=== PATIENT | female | born 1940 | race Caucasian/White ===

== ENCOUNTER 2017-06-18 12:28 | Emergency (ER) | payer OTHER, BC ==
[~2017-06-18] VITALS: Ht 167.6 cm; Wt 115.0 kg
[~2017-06-18 12:28] MED LIST: ASPIR-TRIN325 M1 PO; CARDIZEM CD,CA240 MG PO; CARDIZEM60 MG PO; CLARITIN10 M3 PO; DIOVAN80 MG PO; FLECAINIDE ACET50 MG PO; FLONASE16 G1 BOTH NARES; FLOVENT DISKUS1 DIS2 IH; HYDROCHLOROTHIA25 MG PO; LEVOTHYROXINE75 MCG PO; LEXAPRO10 MG PO; LORAZEPAM0.5 MG PO; LOSARTAN POTASS25 MG PO; PROAIR RESPICL90 MCG IH; RANITIDINE HCL150 M1 PO; SINGULAIR10 MG PO; VITAMIN D-32000 UNI2 PO; ZANTAC150 MG PO; ZYRTEC10 M2 PO
[2017-06-18] MEDS ORDERED: SKELAXIN800 MG PO (15:49)
[2017-06-18] MEDS ORDERED: TRAMADOL HCL50 MG PO (15:49)
[2017-06-18 16:05] VITALS: BP 161/67
== END 2017-06-18 16:06 | disposition home or self-care (01) ==
LOC: EME 12:28
DX: M51.16 Intervertebral disc disorders with radiculopathy, lumbar region (principal); M25.551 Pain in right hip; M79.604 Pain in right leg; Z79.82 Long term (current) use of aspirin
CPT/HCPCS: 72100; 73502; 99281; 99283

== ENCOUNTER 2018-02-17 17:23 | Emergency (ER) | payer OTHER, BC ==
[~2018-02-17] VITALS: Ht 167.6 cm; Wt 109.6 kg
[~2018-02-17 17:23] MED LIST changes: +SKELAXIN800 MG PO; +TRAMADOL HCL50 MG PO
[2018-02-17 18:25] LABS: HEMATOCRIT 38.8 % (36.0-46.0); HEMOGLOBIN 13.7 G/DL (11.9-15.5); MCH 38.1 PG (29.0-34.0); MCHC 35.3 G/DL (30.0-36.0); MCV 107.8 FL (83-99); PLATELET COUNT 308 K/uL (156-360); RBC DIS.WIDTH-CV 13.5 % (11.8-14.6); RBC DIS.WIDTH-SD 53.9 % (39-53); WHITE BLOOD COUNT 20.2 K/uL (4.1-10.2)
[2018-02-17 18:35] LABS: ALBUMIN 4.3 g/dL (3.2-4.8); CHLORIDE 95 mEq/L (99-109); INTER. NORMALIZED RATIO 2.6; POTASSIUM 4.4 mEq/L (3.7-5.4); SODIUM 132 mEq/L (136-147)
[2018-02-17 18:37] LABS: PTT 41.8 SEC (25-37)
[2018-02-17 18:38] LABS: GLUCOSE 113 mg/dL (70-99); TOTAL PROTEIN 7.2 g/dL (6.4-8.3)
[2018-02-17 18:40] LABS: TOTAL BILIRUBIN 1.1 mg/dL (0.0-1.0)
[2018-02-17 18:41] LABS: ALKALINE PHOSPHATASE 70 IU/L (3-129); CREATININE 1.3 mg/dL (0.6-1.3); GFR ESTIMATE (CALCULATED) 42 mL/min/
[2018-02-17 18:42] LABS: UREA NITROGEN (BUN) 20 mg/dL (9-23)
[2018-02-17 18:43] LABS: AST (GOT) 37 IU/L (2-34)
[2018-02-17 18:44] LABS: ALT (GPT) 18 IU/L (3-49)
[2018-02-17 19:31] LABS: COLOR ORANGE ((YELLOW))
[2018-02-17 19:32] LABS: APPEARANCE CLOUDY ((CLEAR)); BILIRUBIN SMALL; BLOOD LARGE; GLUCOSE (STRIP) NEGATIVE; KETONES NEGATIVE; LEUKOCYTES MODERATE; NITRITE NEGATIVE; PH, URINE 6.5 (5-8); PROTEIN (STRIP) 100; UROBILINOGEN 0.2 MG/DL (0.2-1.0)
[2018-02-17 19:33] LABS: RED BLOOD CELLS TNTC /HPF (0-5); UCUL ADDED? YES
[2018-02-17 21:56] VITALS: BP 123/58
[2018-02-19] MEDS ORDERED: TYLENOL325 M2 PO (13:23)
[2018-02-19] MEDS ORDERED: CARDIZEM CD180 MG PO (13:24)
[2018-02-19] MEDS ORDERED: HYDROCHLOROTHIA25 MG PO (13:24)
[2018-02-19] MEDS ORDERED: FOLIC ACID1 MG PO (13:24)
[2018-02-19] MEDS ORDERED: ATIVAN0.5 MG PO (13:25)
[2018-02-19] MEDS ORDERED: COUMADIN2.5 MG PO (13:26)
[2018-02-19] MEDS ORDERED: VITAMIN D33000 UNIT PO (13:26)
[2018-02-19] MEDS ORDERED: HYDREA500 MG PO (13:26)
== END 2018-02-17 21:57 | disposition home or self-care (01) ==
LOC: EME 17:23
PROVIDERS: Physician Assistant
DX: N30.91 Cystitis, unspecified with hematuria (principal); Z79.01 Long term (current) use of anticoagulants; Z86.718 Personal history of other venous thrombosis and embolism; J45.909 Unspecified asthma, uncomplicated; I10 Essential (primary) hypertension; F32.9 Major depressive disorder, single episode, unspecified; Z88.0 Allergy status to penicillin; Z88.1 Allergy status to other antibiotic agents; Z88.5 Allergy status to narcotic agent; Z88.8 Allergy status to other drugs, medicaments and biological substances
CPT/HCPCS: 74177; 80053; 81003; 83605; 85027; 85610; 85730; 86850; 86900; 86901; 87040; 87077; 87086; 87186; 99281; 99285; J7030